=== PATIENT | female | born 1985 | race African-American/Black ===

== ENCOUNTER 2019-03-20 13:20 | Emergency (ER) | payer MEDICAID ==
[~2019-03-20] VITALS: Ht 162.6 cm; Wt 104.3 kg
[2019-03-20 13:20] VITALS: BP 122/83
[2019-03-20] MEDS ORDERED: NKM (13:24)
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
[2019-03-20] MEDS ORDERED: Acetaminophen 500mg (ES) tab ORAL ONE (13:45)
--- NOTE | 2019-03-20 13:50 | NUR ---
ED Nurse Note: patient taken to CT
--- NOTE | 2019-03-20 14:59 | Diagnostic Imaging Report ---
Indication: Neck pain. Technique: Continuous helical imaging of the cervical spine was obtained transaxially from the skull base to the upper thoracic spine. 2-D coronal and sagittal reformatted images were obtained. Automatic Exposure Control was utilized. Total Dose length Product (DLP): 349.[address] Dose Index Volume (CTDIvol): 15.65 mGy Comparison: None Findings: There is no evidence of an acute fracture or malalignment. Atlantoaxial alignment appears normal. Height and configuration of the vertebral bodies and intervertebral discs are within normal limits. Uncovertebral joints and facets are unremarkable. There is no soft tissue swelling. Impression: Negative cervical spine CT The CT scanner at [facility] is accredited by the [employer] and the scans are performed using dose optimization techniques as appropriate to a performed exam including Automatic Exposure control.
--- NOTE | 2019-03-20 15:03 | Diagnostic Imaging Report ---
Indication: Chest trauma. Chest pain Comparison: None A single view chest radiograph was obtained. Findings: Cardiomediastinal appearance is within normal limits for age. The lungs are clear. Pulmonary vascularity is appropriate. The diaphragmatic contour is smooth and costophrenic angles are sharp. No pleural effusions are identified. The bones are unremarkable. Impression: No acute findings
[2019-03-20] MEDS ORDERED: CYCLOBENZAPRINE10 MG ORAL (15:12)
[2019-03-20] MEDS ORDERED: IBU800 MG PO (15:12)
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
[2019-03-20] MEDS ORDERED: Ketorolac 30mg Inj IM ONE (15:30)
[2019-03-20 15:35] VITALS: BP 122/83
--- NOTE | 2019-03-20 15:35 | NUR ---
ER DISCHARGE NOTE: Patient is cleared to be discharged per KACIE CRANE, pt is aox4, on room air, with stable vital signs. pt was given dc and prescription instructions, pt was able to verbalize understanding, pt id band removed without complications. pt is able to ambulate with steady gait. pt took all belongings.
== END 2019-03-20 15:35 | disposition home or self-care (01) ==
LOC: EDBD 13:20 → EMR 14:15
DX: S16.1XXA Strain of muscle, fascia and tendon at neck level, initial encounter (principal); S29.011A Strain of muscle and tendon of front wall of thorax, initial encounter; V43.52XA Car driver injured in collision with other type car in traffic accident, initial encounter; Y92.410 Unspecified street and highway as the place of occurrence of the external cause; M25.512 Pain in left shoulder
CPT/HCPCS: 71045; 72125; 96372; 99284; J1885